=== PATIENT | male | born 1980 | race Caucasian/White ===

== ENCOUNTER 2017-09-10 15:43 | Inpatient (IN) | payer OTHER ==
[~2017-09-10] VITALS: Ht 175.3 cm; Wt 81.6 kg
[2017-09-15] MEDS ORDERED: CIPRO500 MG PO (14:58)
[2017-09-15] MEDS ORDERED: LEVSIN/SL0.125 MG PO (14:58)
[2017-09-15] MEDS ORDERED: RESTORA CAPSUL1 EACH PO (14:58)
[2017-09-15] MEDS ORDERED: FLAGYL500MG PO (14:58)
== END 2017-09-15 16:23 | disposition home or self-care (01) | DRG 392 ==
LOC: ER 15:43 → SURH 09-11 09:03 → SEC-K 09-11 09:03 → SURH 09-11 14:16
PROC: 3E0336Z Introduction of Nutritional Substance into Peripheral Vein, Percutaneous Approach (ICD-10-PCS; principal; 2017-09-11)
DX: K57.20 Diverticulitis of large intestine with perforation and abscess without bleeding (principal)

== ENCOUNTER → 2017-12-09 | Day surgery (SDC) | payer OTHER ==
[~2017-12-09] MED LIST: CIPRO500 MG PO; FLAGYL500MG PO; LEVSIN/SL0.125 MG PO; RESTORA CAPSUL1 EACH PO
== END | disposition home or self-care (01) ==
LOC: ADM 12-06 15:00 → AMB-ENDOS 09:45
DX: K62.1 Rectal polyp (principal); D12.7 Benign neoplasm of rectosigmoid junction; K57.30 Diverticulosis of large intestine without perforation or abscess without bleeding